=== PATIENT | female | born 1995 | race Caucasian/White ===

== ENCOUNTER → 2017-10-18 08:05 | Outpatient (CLI) | payer MEDICAID, SELFPAY ==
--- NOTE | 2017-10-18 08:30 | US_ITS ---
US gallbladder HISTORY: ITS.REASON: RUQ PAIN ORDERING PHYSICIAN: Sandhya Ahn PATIENT AGE: 21 years FINDINGS: PANCREAS: Unremarkable. No obvious mass or abnormal fluid collection. No ductal dilatation LIVER: No focal liver lesions demonstrated. Homogeneous echogenicity. No intrahepatic biliary ductal dilatation evident RIGHT KIDNEY: Unremarkable. Normal size and echogenicity. No hydronephrosis GALLBLADDER: Stones are present in the gallbladder measuring up to 13 mm. Common bile duct is normal at 4 mm. No gallbladder wall thickening, pericholecystic fluid, or biliary dilatation. IMPRESSION: Cholelithiasis
== END ==
PROVIDERS: Family Provider Nurse Practitioner Family; PCP Internal Medicine Adolescent Medicine; Visit Provider Nurse Practitioner Family
DX: R10.11 Right upper quadrant pain (principal)
CPT/HCPCS: 76705

== ENCOUNTER → 2017-11-20 13:10 | Outpatient (CLI) | payer MEDICAID, SELFPAY ==
[2017-11-20 13:32] LABS: Basophils # 0.1 K/mm3 (0-0.2); Basophils % 0.9 % (0.1-2.0); Eosinophils # 0.4 K/mm3 (0.0-0.4); Eosinophils % 7.5 % (0.1-12.0); Hematocrit 42.6 % (37.0-47.0); Hemoglobin 13.3 g/dL (12.2-16.2); Lymphocytes # 2.2 K/mm3 (0.7-4.5); Lymphocytes % 38.3 K/mm3 (10-50); Mean Corpuscular HGB Conc 31.3 g/dL (31.8-35.4); Mean Corpuscular Hemoglobin 28.4 pg (27.0-31.2); Mean Corpuscular Volume 90.8 fl (81-99); Mean Platelet Volume 7.5 fl (7.4-10.4); Monocytes # 0.3 K/mm3 (0.1-1.0); Monocytes % 5.5 % (1.7-9.3); Neutrophils # 2.7 K/mm3 (1.8-7.8); Neutrophils % 47.8 % (37.0-80.0); Platelet Count 342 K/mm3 (142-424); Red Blood Count 4.69 M/mm3 (4.20-5.40); Red Cell Distribution Width 12.6 % (11.5-17.5); White Blood Count 5.6 K/mm3 (4.8-10.8)
[2017-11-20 15:34] LABS: Alanine Aminotransferase 20 U/L (12-78); Albumin Level 3.7 gm/dL (3.4-5.0); Alkaline Phosphatase 43 U/L (46-116); Anion Gap 13.4 mEq/L (5-15); Aspartate Amino Transferase 19 U/L (15-37); Bilirubin,Total 0.2 mg/dL (0.2-1.0); Blood Urea Nitrogen 8 mg/dL (7-18); Calcium 9.3 mg/dL (8.5-10.1); Carbon Dioxide 27 mmol/L (21.0-32.0); Chloride 106 mmol/L (98-107); Creatinine,Serum 0.65 mg/dL (0.55-1.02); Estimated Glomerular Filt Rate 115 ml/min (>60); GFR (African American) 139 ML/MIN (>60); Globulin 3.6 gm/dl (1.3-3.2); Glucose 82 mg/dL (74-106); Potassium 4.4 mmoL/L (3.5-5.1); Sodium 142 mmol/L (136-145); Total Protein,Serum 7.3 gm/dL (6.4-8.2)
[2017-11-20 15:50] LABS: HCG Qualitative, Serum Negative (Negative)
== END ==
PROVIDERS: Visit Provider Surgery
DX: Z01.818 Encounter for other preprocedural examination (principal); K80.12 Calculus of gallbladder with acute and chronic cholecystitis without obstruction
CPT/HCPCS: 36415; 80053; 84703; 85025

== ENCOUNTER 2023-12-06 17:26 | Emergency (ER) | payer MEDICAID, SELFPAY ==
[2023-12-06 17:40] VITALS: BP 140/90; PULSE 86; RESP 18; TEMP 36.8; O2SAT 97; BMI 31.4
--- NOTE | 2023-12-06 17:53 | XR_ITS ---
PROCEDURE INFORMATION: Exam: XR Left Wrist Exam date and time: 12/06/2023 5:50 PM Age: 28 years old Clinical indication: Injury or trauma; Fall; Other: Pain; Additional info: Fell TECHNIQUE: Imaging protocol: Radiologic exam of the left wrist. Views: 3 or more views. COMPARISON: No relevant prior studies available. FINDINGS: Bones/joints: No acute fracture or dislocation. Soft tissues: Normal. IMPRESSION: No acute fracture or dislocation.
--- NOTE | 2023-12-06 17:53 | XR_ITS ---
PROCEDURE INFORMATION: Exam: XR Left Hand Exam date and time: 12/06/2023 5:52 PM Age: 28 years old Clinical indication: Injury or trauma; Fall; Other: Pain; Additional info: Fell TECHNIQUE: Imaging protocol: Radiologic exam of the left hand. Views: 3 or more views. COMPARISON: CR XR WRIST LT MIN 3V 06/12/2023 17:50 FINDINGS: Bones/joints: Bone island in the distal phalanx of the middle finger. No acute fracture or dislocation. Soft tissues: Normal. IMPRESSION: No acute fracture or dislocation.
--- NOTE | 2023-12-06 17:55 | ED_ITS ---
Discharge Plan Disposition Patient Disposition: Home, Self-Care Condition: Good Referrals Follow up/Referrals: Ben Lake MD [Primary Care Provider] - See instructions Clinical Impressions Clinical Impression: Hand contusion Qualifiers: Encounter type: subsequent encounter Laterality: left Qualified Code(s): S 60.222D - Contusion of left hand, subsequent encounter Instructions Patient Instructions: DI for Hand Injury, DI for Hand Pain Discharge ED Provider: Karissa Stuart [facility] General Stated complaint: AO 12/05/23 injury left hand Mode of Arrival: Ambulatory Source of Information: Patient Limitations: No Limitations Time Seen by Provider: 12/06/23 17:54 Description of Symptoms (Recalled from Triage Doc. by RN): PATIENT STATES SHE WAS RUNNING AFTER HER CHILD YESTERDAY AND FELL, LANDING ON HER LEFT HAND/WRIST. SWELLING AND BRUISING NOTED TO SITE. RADIAL PULSE WNL HEENT Symptoms (Recalled from RN notes): No Resp Symptoms (Recalled from RN notes): No Skin Symptoms (Recalled from RN notes): No MS Symptoms (Recalled from RN notes): Yes Functional Status (Recalled from RN notes): WNL History of Present Illness Provider Complaint: PATIENT STATES SHE WAS RUNNING AFTER HER CHILD YESTERDAY AND FELL, LANDING ON HER LEFT HAND/WRIST. SWELLING AND BRUISING NOTED TO SITE. RADIAL PULSE WNL. Related Data Allergies Allergy/AdvReac Type Severity Reaction Status Date / Time chlorhexidine Allergy Verified 12/06/23 17:55 [From ChloraPrep Clear] gentamicin Allergy Verified 12/04/17 09:59 isopropyl alcohol Allergy Verified 12/06/23 17:55 [From ChloraPrep Clear] Worker's Comp Is this a Worker's Comp case?: No [facility] Disclaimer: The information contained in this section may have been updated after the patient was seen, as this information can be updated by other users. Medical History (Updated 12/06/23 @ 18:31 by Karissa Stuart APRN) Depression Anxiety History of gastroesophageal reflux (GERD) Surgical History (Updated 12/06/23 @ 17:56 by Eunice Mendez RN) History of tubal ligation History of cholecystectomy Social History Smoking Status: Current every day smoker tobacco type: e-cigarettes alcohol intake: never current occupational status: unemployed Travel in the last 8 weeks: None household members: family housing: house caffeine: Yes ROS Obtained: Yes All systems reviewed & no additional complaints except as documented Constitutional Constitutional: Reports system reviewed and no additional complaints, except as documented Eyes Eyes: Reports system reviewed and no additional complaints, except as documented ENT Ears, Nose, Mouth, and Throat: Reports system reviewed and no additional complaints, except as documented Cardiovascular Cardiovascular: Reports system reviewed and no additional complaints, except as documented Respiratory Respiratory: Reports system reviewed and no additional complaints, except as documented Gastrointestinal Gastrointestingal: Reports system reviewed and no additional complaints, except as documented Genitourinary Female Genitourinary: Reports system reviewed and no additional complaints, except as documented Musculoskeletal Musculoskeletal: Reports system reviewed and no additional complaints, except as documented, Reports limited range of motion and Reports small joint pain in the hands Integumentary/Breasts Skin/Breast: Reports system reviewed and no additional complaints, except as documented Comments: bruising on left hand Neurologic Neurologic: Reports system reviewed and no additional complaints, except as documented Endocrine Endocrine: Reports system reviewed and no additional complaints, except as documented Hematologic/Lymphatic Henatologic/Lymphatic: Reports system reviewed and no additional complaints, except as documented Allergic/Immunologic Allergic/Immunologic: Reports system reviewed and no additional complaints, except as documented Physical Exam General General appearance: alert and in no apparent distress Head Head exam: atraumatic and normocephalic Eye Eye exam: Present normal appearance ENT ENT exam: Present normal exam and normal oropharynx Neck Neck exam: Present normal inspection Chest Chest inspection: Present normal inspection and symmetric chest wall rise Respiratory Respiratory exam: Present normal lung sounds bilaterally Cardiovascular Cardiovascular exam: Present regular rate and normal rhythm Abdominal Exam Abdominal exam: Present soft and normal bowel sounds Extremities Exam Extremities exam: Present normal capillary refill and edema Expanded Upper Extremity Exam Left: Shoulder exam: Present normal inspection Arm exam: Present normal inspection Elbow exam: Present normal inspection Forearm/Wrist exam: Present normal inspection Hand exam: Present tenderness, swelling and ecchymosis Hand L/R front image: 2 1. other (bruising and swelling) Vascular exam: Normal capillary refill, radial pulse and ulnar pulse Back Exam Back exam: Present normal inspection Neurological Exam Neurological exam: Present alert and oriented X3 Psychiatric Psychiatric exam: Present normal affect and normal mood Skin Skin exam: Present warm, dry and intact Lymphatic Lymphatic Findings: no adenopathy Medical Decision Making Brant Inquiry Pt receiving controlled substance: No Brant was queried for this patient: No Vital Signs: 12/06/23 17:40 Temperature 98.2 F Temperature Source Oral Pulse Rate [Right Brachial] 86 Respiratory Rate 18 Blood Pressure [Right Arm] 140/90 Blood Pressure Mean [Right Arm] 106 Blood Pressure Source [Right Arm] Automatic Cuff Blood Pressure Position [Right Arm] Sitting 02 Sat by Pulse Oximetry 97 Oxygen Delivery Method Room Air Orders (Tests/Meds): ORDERS Category Date Time Status Hand XR left minimum 3 views [XR hand LT min 3V] Stat Exams 12/06/23 17:53 Ordered XR wrist LT min 3V Stat Exams 12/06/23 17:53 Ordered Radiology Data #1: Image(s): Wrist and Hand Image Reviewed: Yes I reviewed the patient's radiology results and Yes I have reviewed radiologist's interpretation WRIST: FINDINGS: Bones/joints: No acute fracture or dislocation. Soft tissues: Normal. IMPRESSION: No acute fracture or dislocation. HAND: FINDINGS: Bones/joints: Bone island in the distal phalanx of the middle finger. No acute fracture or dislocation. Soft tissues: Normal.
[2023-12-06 18:34] VITALS: BP 140/90; PULSE 86; RESP 18; TEMP 36.8; O2SAT 97
--- NOTE | 2023-12-06 18:37 | EXP.UTC ---
Discharge Plan Disposition Patient Disposition: Home, Self-Care Condition: Good Prescriptions Prescriptions: New ibuprofen 800 mg tablet 800 mg PO TID PRN (Reason: pain) Qty: 30 0RF Referrals Follow up/Referrals: Ben Lake MD [Primary Care Provider] - See instructions Clinical Impressions Clinical Impression: Hand contusion Qualifiers: Encounter type: subsequent encounter Laterality: left Qualified Code(s): S60.222D - Contusion of left hand, subsequent encounter Instructions Patient Instructions: DI for Hand Injury, DI for Hand Pain Discharge ED Provider: Karissa Stuart [facility] [place] General Stated complaint: AO 12/05/23 injury left hand Mode of Arrival: Ambulatory Source of Information: Patient Limitations: No Limitations Time Seen by Provider: 12/06/23 17:54 Description of Symptoms (Recalled from Triage Doc. by RN): PATIENT STATES SHE WAS RUNNING AFTER HER CHILD YESTERDAY AND FELL, LANDING ON HER LEFT HAND/WRIST. SWELLING AND BRUISING NOTED TO SITE. RADIAL PULSE WNL HEENT Symptoms (Recalled from RN notes): No Resp Symptoms (Recalled from RN notes): No Skin Symptoms (Recalled from RN notes): No MS Symptoms (Recalled from RN notes): Yes Functional Status (Recalled from RN notes): WNL Related Data Previous Rx's Medication Instructions Recorded ibuprofen 800 mg tablet 800 mg PO TID PRN pain #30 tabs 12/06/23 Allergies Allergy/AdvReac Type Severity Reaction Status Date / Time chlorhexidine Allergy Verified 12/06/23 17:55 [From ChloraPrep Clear] gentamicin Allergy Verified 12/04/17 09:59 isopropyl alcohol Allergy Verified 12/06/23 17:55 [From ChloraPrep Clear] Worker's Comp Is this a Worker's Comp case?: No [facility] Disclaimer: The information contained in this section may have been updated after the patient was seen, as this information can be updated by other users. Medical History (Updated 12/06/23 @ 18:31 by Karissa Stuart APRN) Depression Anxiety History of gastroesophageal reflux (GERD) Surgical History (Updated 12/06/23 @ 17:56 by Eunice Mendez RN) History of tubal ligation History of cholecystectomy Social History Smoking Status: Current every day smoker tobacco type: e-cigarettes alcohol intake: never current occupational status: unemployed Travel in the last 8 weeks: None household members: family housing: house caffeine: Yes ROS Obtained: Yes All systems reviewed & no additional complaints except as documented Physical Exam General General appearance: alert and in no apparent distress Respiratory Respiratory exam: Present normal lung sounds bilaterally Cardiovascular Cardiovascular exam: Present regular rate, normal rhythm and normal heart sounds Neurological Exam Neurological exam: Present alert and oriented X3 Medical Decision Making Brant Inquiry Pt receiving controlled substance: No Vital Signs: 12/06/23 17:40 12/06/23 18:34 Temperature 98.2 F 98.2 F Temperature Source Oral Pulse Rate 86 Pulse Rate [Right Brachial] 86 Respiratory Rate 18 18 Blood Pressure 140/90 Blood Pressure [Right Arm] 140/90 Blood Pressure Mean [Right Arm] 106 Blood Pressure Source [Right Arm] Automatic Cuff Blood Pressure Position [Right Arm] Sitting 02 Sat by Pulse Oximetry 97 Oxygen Delivery Method Room Air Orders (Tests/Meds): ORDERS Category Date Time Status Hand XR left minimum 3 views [XR hand LT min 3V] Stat Exams 12/06/23 17:53 Completed XR wrist LT min 3V Stat Exams 12/06/23 17:53 Completed
== END 2023-12-06 18:41 | disposition home or self-care (01) ==
PROVIDERS: Emergency Provider Nurse Practitioner Family; PCP Family Medicine
DX: M79.642 Pain in left hand; S60.222A Contusion of left hand, initial encounter; W01.10XA Fall on same level from slipping, tripping and stumbling with subsequent striking against unspecified object, initial encounter; F17.290 Nicotine dependence, other tobacco product, uncomplicated
CPT/HCPCS: 73110; 73130; 99204; 99212; G0463